=== PATIENT | female | born 1995 | race Hispanic/Latino ===

== ENCOUNTER 2021-05-07 02:53 | Emergency (ER) | payer SELFPAY ==
[~2021-05-07] VITALS: Ht 154.9 cm; Wt 69.4 kg
[2021-05-07] MEDS ORDERED: MAGNESIUM/ALUMINUM/SIMETHICONE 30 ML UDC ONE (03:47)
[2021-05-07] MEDS ORDERED: BELLADONNA ALK/PHENOBARBITAL 5 ML UDC ONE (03:47)
[2021-05-07] MEDS ORDERED: LIDOCAINE VISC 2% SOLN 15 ML UDC ONE (03:47)
[2021-05-07] MEDS ORDERED: OMEPRAZOLE40 MG PO (04:03)
[2021-05-07] MEDS ORDERED: MYLANTA MAXIMUM10 ML PO (04:03)
[2021-05-07] MEDS ORDERED: ONDANSETRON ODT4 MG PO (04:03)
[2021-05-07 04:05] VITALS: BP 109/60
[2021-05-07] MEDS ORDERED: DONNATAL/LIDOCAINE/MAALOX 30 ML SUSP PO ONE (04:15)
== END 2021-05-07 04:05 | disposition home or self-care (01) ==
LOC: FSED 03:36
DX: R10.13 Epigastric pain (principal); K21.9 Gastro-esophageal reflux disease without esophagitis; R11.0 Nausea
CPT/HCPCS: 99282

== ENCOUNTER 2025-02-24 11:15 | Emergency (ER) | payer SELFPAY ==
[~2025-02-24] VITALS: Ht 154.9 cm; Wt 70.9 kg
[~2025-02-24 11:15] MED LIST: MYLANTA MAXIMUM10 ML PO; OMEPRAZOLE40 MG PO; ONDANSETRON ODT4 MG PO
[2025-02-24] MEDS: ONDANSETRON HCL INJ 2MG/ML 2ML 2 MG/ML VIAL IV STA (12:11)
[2025-02-24] MEDS: SODIUM CHLORIDE 0.9% 1000ML 1,000 ML IV ONE ×2 (12:11→15:47)
[2025-02-24] MEDS: ACETAMINOPHEN 1000 MG/100 ML IV STA (14:26)
[2025-02-24 16:40] VITALS: PULSE 107; RESP 18; TEMP 98.7; O2SAT 97
[2025-02-24] MEDS ORDERED: ONDANSETRON ODT4 MG PO (17:10)
== END 2025-02-24 17:16 | disposition home or self-care (01) ==
LOC: FSED 11:38
DX: R10.13 Epigastric pain (principal); R00.0 Tachycardia, unspecified; A08.4 Viral intestinal infection, unspecified; R19.7 Diarrhea, unspecified; E86.0 Dehydration
CPT/HCPCS: 80053; 93005; 99283; J0131; J2405; J7030